=== PATIENT | female | born 1950 | race Caucasian/White ===

== ENCOUNTER 2022-01-22 05:04 | Emergency (ER) | payer MEDICARE, BC, SELFPAY ==
[2022-01-22] VITALS (38 sets, daily range): BP systolic 143–209; BP diastolic 64–84; PULSE 65–85; RESP 13–25; TEMP 36.8; O2SAT 92–97; BMI 36.0
--- NOTE | 2022-01-22 05:15 | XRR_ITS ---
PROCEDURE INFORMATION: Exam: XR Chest Exam date and time: 01/22/2022 5:19 AM Age: 71 years old Clinical indication: Pain; Patient HX: C/O burning in chest. Hypertensive on monitor. History of acid reflux. ; Additional info: Cp TECHNIQUE: Imaging protocol: Radiologic exam of the chest. Views: 1 view. COMPARISON: No relevant prior studies available. FINDINGS: Lungs: Unremarkable. No consolidation. Pleural spaces: Unremarkable. No pleural effusion. No pneumothorax. Heart/Mediastinum: Unremarkable. No cardiomegaly. Bones/joints: There is left humeral fixation hardware. XR/XR chest 1V portable [id number] IMPRESSION: No acute findings.
--- NOTE | 2022-01-22 05:23 | CTR_ITS ---
PROCEDURE INFORMATION: Exam: CT Head Without Contrast Exam date and time: 01/22/2022 5:45 AM Age: 71 years old Clinical indication: Patient HX: C/O dizziness this a. M. Hypertensive on monitor. ; Additional info: Dizzy TECHNIQUE: Imaging protocol: Computed tomography of the head without contrast. Radiation optimization: All CT scans at this facility use at least one of these dose optimization techniques: automated exposure control; mA and/or kV adjustment per patient size (includes targeted exams where dose is matched to clinical indication); or iterative reconstruction. COMPARISON: No relevant prior studies available. RADIATION DOSE METRICS: Total DLP (mGy-cm): 1056.78 FINDINGS: Brain: There is no acute intracranial hemorrhage or mass effect. Mild diffuse volume loss is within the range of normal for patient age. There are small vessel ischemic changes within the periventricular and subcortical white matter, but the normal pedraza/white matter delineation is maintained. 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 Cerebral ventricles: No ventriculomegaly. Paranasal sinuses: Visualized sinuses are unremarkable. No fluid levels. Mastoid air cells: Visualized mastoid air cells are well aerated. Bones/joints: Unremarkable. No acute fracture. Soft tissues: Unremarkable. CT/CT head wo con* [id number] IMPRESSION: No acute intracranial hemorrhage or edema.
--- NOTE | 2022-01-22 05:23 | ED_ITS ---
Documented by User: Aubrey Hardin MD 01/22/22 05:36 HPI - Dizziness General: Chief Complaint: Dizziness Stated Complaint: Dizzy, [place], Time Seen by Provider: 01/22/22 05:06 Source: patient Mode of arrival: ambulatory Limitations: no limitations History of Present Illness: HPI Narrative: 71-year-old female who states that she has been having some chest pain that she attributed to heartburn along with dizziness since midnight. She states that s he feels okay when she is still but with any movement she feels like she may pass out or like the room is spinning. States she denies any headache she does have a history of hypertension is hypertensive here. States the pain in her chest is actually improved is currently a 2 out of 10 denies any vomiting or diarrhea denies any shortness of breath. She has had some tingling to bilateral arms. Associated symptoms: Reports chest pain; Denies chills, nausea or vomiting Review of Systems Const: Denies: fever(s), chills, body aches or change in appetite Eyes: Denies: blurry vision or eye discomfort ENMT: Denies: throat pain or dental pain Card: Reports: chest pain Resp: Denies: dyspnea GI: Denies: abdominal pain, nausea, vomiting or diarrhea : Denies: dysuria Musc: Denies: neck pain or back pain Skin/Breast: Denies: rash Neuro: Reports: dizziness Psych: Denies: depression Jose Ramon/Lymph: Denies: easy bruising All/Imm: Denies: urticaria PFSH ED PFSH: Medical History (Updated 01/22/22 @ 08:54 by Geraldo Hoang DO) Hypertension Social History (Updated 01/22/22 @ 05:24 by Aubrey Hardin MD) Substance/Drug Use: never Physical Exam Const: COMMON NORMALS: no acute distress, patient oriented x3 and healthy appearing HENMT: COMMON NORMALS: normocephalic and atraumatic HEAD & SCALP: normocephalic and atraumatic Eye: COMMON NORMALS: Equal, round and reactive pupils present and EOMs intact bilaterally PUPIL: Yes Equal, round and reactive pupils present Neck/C-Spine: COMMON NORMALS: full ROM and supple Chest: COMMONS NORMALS: normal inspection of the chest and normal palpation of entire chest wall Resp: COMMON NORMALS: normal respiratory effort, No retractions, No use of accessory muscles and clear to auscultation bilaterally AUSCULTATION: clear to auscultation bilaterally Cardio: COMMON NORMALS: regular rate, regular rhythm and No murmurs present (Cardio) RATE: regular rate RHYTHM: regular rhythm GI: COMMON NORMALS: Normal to inspection, nondistended, normoactive bowel sounds present, Soft to palpation, non-tender and no masses PALPATION: Yes Soft to palpation Extremity: COMMON NORMALS: normal to inspection and full ROM Neuro: COMMON NORMALS: patient oriented x3, moves all extremities and no focal motor deficits CRANIAL NERVES: Yes CN normal except as noted SPEECH: speech normal MOTOR EXAM: 5/5 motor strength present throughout Psych: COMMON NORMALS: mental status grossly normal, Normal thought process present and cooperative THOUGHT PROCESS: Normal thought process present Skin: COMMON NORMALS: no rashes or lesions noted and no wounds GENERAL SKIN EXAM: no rashes or lesions noted Course Vital Signs: Vital signs: Vital Signs Temperature 98.2 F 01/22/22 05:08 Pulse Rate 69 01/22/22 07:00 Respiratory Rate 17 01/22/22 07:00 Blood Pressure 146/65 01/22/22 07:00 Pulse Oximetry 92 01/22/22 07:00 Oxygen Delivery Me thod 01/22/22 06:00 MDM - Dizziness Lab Data : 01/22/22 05:41 01/22/22 05:41 Radiology Impressions Chest X-Ray 01/22/22 05:15 IMPRESSION: No acute findings. Head CT 01/22/22 05:23 IMPRESSION: No acute intracranial hemorrhage or edema. Laboratory Results WBC 10.4 10^3/uL (4.0-10.0) H 01/22/22 05:41 RBC 4.30 10^6/uL (4.1-5.3) 01/22/22 05:41 Hgb 13.7 g/dL (11.5-15.3) 01/22/22 05:41 Hct 41.6 % (37.0-47.0) 01/22/22 05:41 MCV 96.7 fl (81-99) 01/22/22 05:41 MCH 31.9 pg (28.0-34.0) 01/22/22 05:41 MCHC 32.9 g/dL (30.0-36.0) 01/22/22 05:41 RDW 12.4 % (12.1-15.1) 01/22/22 05:41 Plt Count 142 10^3/cmm (130-400) 01/22/22 05:41 MPV 9.4 fL (7.4-10.4) 01/22/22 05:41 Neut % (Auto) 85.1 % 01/22/22 05:41 Lymph % (Auto) 9.7 % 01/22/22 05:41 Dukes % (Auto) 4.1 % 01/22/22 05:41 Eos % (Auto) 0.3 % 01/22/22 05:41 Baso % (Auto) 0.3 % 01/22/22 05:41 Neut # (Auto) 8.85 10^3/uL (1.8-7.7) H 01/22/22 05:41 Lymph # (Auto) 1.0 10^3/uL (0.8-4.8) 01/22/22 05:41 Dukes # (Auto) 0.4 10^3/uL (0.2-0.9) 01/22/22 05:41 Eos # (Auto) 0.0 10^3/uL (0.0-0.8) 01/22/22 05:41 Baso # (Auto) 0.0 10^3/uL (0.0-0.1) 01/22/22 05:41 Nucleated RBC % (auto) 0 % 01/22/22 05:41 Nucleated RBCs # 0.0 /100WBC 01/22/22 05:41 PT 24.10 SECONDS (12.1-14.9) H 01/22/22 05:41 INR 2.13 (0.8-1.2) H 01/22/22 05:41 Sodium 135 mmol/L (136-145) L 01/22/22 05:41 Potassium 4.1 mmol/L (3.5-5.1) 01/22/22 05:41 Chloride 101 mmol/L (98-107) 01/22/22 05:41 Carbon Dioxide 23 mmol/L (22-29) 01/22/22 05:41 Anion Gap 15.1 (5-19) 01/22/22 05:41 BUN 16 mg/dL (8-23) 01/22/22 05:41 Creatinine 0.8 mg/dL (0.5-0.9) 01/22/22 05:41 GFR Calculation 71.1 mL/min (90-130) L 01/22/22 05:41 Glucose 214 mg/dL (65-115) H 01/22/22 05:41 Calculated Osmolality 288 mOsm/kg (285-295) 01/22/22 05:41 Calcium 8.7 mg/dL (8.5-10.5) 01/22/22 05:41 Total Bilirubin 0.6 mg/dL (0.15-1.2) 01/22/22 05:41 AST 18 U/L (0-32) 01/22/22 05:41 ALT 19 U/L (0-33) 01/22/22 05:41 Alkaline Phosphatase 114 U/L (35-105) H 01/22/22 05:41 Troponin T Baseline 14 ng/L (0-10) H 01/22/22 05:41 Troponin T 120 Minute 11.83 ng/L (0-10) H 01/22/22 07:26 Delta Troponin T -2.17 ABS# (0-10) L 01/22/22 07:26 Total Protein 6.0 g/dL (6.6-8.7) L 01/22/22 05:41 Albumin 3.8 g/dL (3.5-5.2) 01/22/22 05:41 Globulin 2.2 g/dL (1.3-4.6) 01/22/22 05:41 Lipase 96 U/L (13-60) H 01/22/22 05:41 Discharge Plan Discharge Patient Disposition: Home Clinical Impression: Benign paroxysmal positional vertigo, Gastroesophageal reflux disease Condition: Stable Prescriptions: New omeprazole 20 mg capsule,delayed release(DR/EC) 20 mg PO DAILY Qty: 45 0RF Rx Instructions: Twice daily for 10 to 14 days then daily meclizine 25 mg tablet 25 mg PO QID PRN (Reason: dizziness) Qty: 20 0RF Discharge Orders: Discharge ED (Routine); Ordered 01/22/22 Ordered By: Geraldo Hoang Patient Instructions: Opioid Safety, Pain Management Sign Out Sign Out Data: Patient Sign Out occurred on 01/22/22 at 06:01. Patient's care was discussed, and care was transferred from to Geraldo Hoang DO. Coding Level of Care Code ED Apprentice Photographer for Chg Fwd Exam Comprehensive Documented by User: Geraldo Hoang DO 01/22/22 08:57 HPI - Dizziness General: Chief Complaint: Dizziness Stated Complaint: Dizzy, [place], Time Seen by Provider: 01/22/22 05:06 PFSH ED PFSH: Medical History (Updated 01/22/22 @ 08:54 by Geraldo Hoang DO) Hypertension Social History (Updated 01/22/22 @ 05:24 by Aubrey Hardin MD) Substance/Drug Use: never Course Vital Signs: Vital signs: Vital Signs Temperature 98.2 F 01/22/22 05:08 Pulse Rate 69 01/22/22 07:00 Respiratory Rate 17 01/22/22 07:00 Blood Pressure 146/65 01/22/22 07:00 Pulse Oximetry 92 01/22/22 07:00 Oxygen Delivery Me thod 01/22/22 06:00 MDM - Dizziness Medical Decision Making Assumed care at change of shift. Patient's symptoms improved with the meclizine was given. Cardiac enzymes and EKG unremarkable discharge home. She has been taking omeprazole as on an as-needed basis recommend she take it regularly twice daily for 10 to 14 days then once daily after that. We will give meclizine to use as needed. Patient and her asked about the tingling in her fingers suspect that may have been a little bit of hyperventilation, likely related to her labyrinthitis symptoms. She has no focal neurologic deficits at this time. Numbness and tingling was of bilaterally in the hands. Medical Records I reviewed the patient's medical records. Lab Data I reviewed the patient's lab results. : 01/22/22 05:41 01/22/22 05:41 Radiology Impressions Chest X-Ray 01/22/22 05:15 IMPRESSION: No acute findings. Head CT 01/22/22 05:23
[2022-01-22] MEDS: aspirin 81 mg Chew Tablet 324 MG PO (05:35)
[2022-01-22] MEDS: meclizine 25 mg tablet 50 MG PO (05:36)
[2022-01-22 05:50] LABS: Basophils % 0.3 %; Eosinophils % 0.3 %; Hematocrit 41.6 % (37.0-47.0); Hemoglobin 13.7 g/dL (11.5-15.3); Lymphocytes % 9.7 %; Mean Corpuscular HGB Conc 32.9 g/dL (30.0-36.0); Mean Corpuscular Hemoglobin 31.9 pg (28.0-34.0); Mean Corpuscular Volume 96.7 fl (81-99); Mean Platelet Volume 9.4 fL (7.4-10.4); Monocytes # 0.4 10^3/uL (0.2-0.9); Monocytes % 4.1 %; Neutrophils # 8.85 10^3/uL (1.8-7.7); Neutrophils % 85.1 %; Nucleated Red Blood Cells % 0 %; Platelet Count 142 10^3/cmm (130-400); Red Cell Distribution Width 12.4 % (12.1-15.1); White Blood Count 10.4 10^3/uL (4.0-10.0)
--- NOTE | 2022-01-22 05:55 | ECG_ITS ---
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 Measurements Intervals [place] Rate: 78 P: 23 TN: 139 QRS: 5 QRSD: 110 T: 86 QT: 393 QTc: 449 Interpretive Statements SINUS RHYTHM POSSIBLE LEFT ATRIAL ENLARGEMENT [-0.1mV P-WAVE IN V1/V2] POSSIBLE LEFT VENTRICULAR HYPERTROPHY [VOLTAGE CRITERIA PLUS LAE OR QRS WIDENING] NONSPECIFIC T-WAVE ABNORMALITY No previous ECG available for comparison Electronically Signed On 01-22-2022 10:41:27 CDT by Dawna Delarosa M.D. [id number]
[2022-01-22] MEDS: nitroglycerin 0.4 mg sublingual Tablet SUBLINGUAL (05:59)
[2022-01-22 06:00] LABS: INR 2.13 (0.8-1.2)
[2022-01-22 06:10] LABS: Alanine Aminotransferase 19 U/L (0-33); Albumin Level 3.8 g/dL (3.5-5.2); Alkaline Phosphatase 114 U/L (35-105); Anion Gap 15.1 (5-19); Aspartate Amino Transferase 18 U/L (0-32); Blood Urea Nitrogen 16 mg/dL (8-23); Calcium 8.7 mg/dL (8.5-10.5); Carbon Dioxide 23 mmol/L (22-29); Chloride 101 mmol/L (98-107); Creatinine Clr Calc Pharmacy 82.4473; Globulin 2.2 g/dL (1.3-4.6); Glomerular Filtration Rate 71.1 mL/min (90-130); Glucose 214 mg/dL (65-115); Lipase 96 U/L (13-60); Osmolality Calculated 288 mOsm/kg (285-295); Potassium 4.1 mmol/L (3.5-5.1); Sodium 135 mmol/L (136-145); Total Bilirubin 0.6 mg/dL (0.15-1.2)
[2022-01-22 06:11] LABS: Troponin(5th) Baseline 14 ng/L (0-10)
--- NOTE | 2022-01-22 07:16 | ECG_ITS ---
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 Measurements Intervals [place] Rate: 64 P: 23 MO: 161 QRS: 2 QRSD: 109 T: 78 QT: 412 QTc: 427 Interpretive Statements SINUS RHYTHM POSSIBLE LEFT ATRIAL ENLARGEMENT [-0.1mV P-WAVE IN V1/V2] POSSIBLE LEFT VENTRICULAR HYPERTROPHY [VOLTAGE CRITERIA PLUS LAE OR QRS WIDENING] NONSPECIFIC T-WAVE ABNORMALITY Compared to ECG 01/22/2022 05:55:53 No significant changes Electronically Signed On 01-22-2022 10:42:34 CDT by Dawna Delarosa M.D. [id number]
[2022-01-22 08:00] LABS: Troponin 5 2HR 11.83 ng/L (0-10)
[2022-01-22 08:24] LABS: Troponin 5 2HR Delta -2.17 ABS# (0-10)
== END 2022-01-22 09:25 | disposition home or self-care (01) ==
PROVIDERS: Emergency Medicine; Emergency Provider Family Medicine
DX: H81.10 Benign paroxysmal vertigo, unspecified ear (principal); K21.9 Gastro-esophageal reflux disease without esophagitis; I10 Essential (primary) hypertension
CPT/HCPCS: 36415; 70450; 71045; 80053; 83690; 84484; 85025; 85610; 93005; 99285; J8597